=== PATIENT | male | born 1975 | race Caucasian/White ===

== ENCOUNTER → 2017-12-21 | Outpatient (REF) | payer OTHER ==
[2017-12-21 17:01] LABS: CHLAMYDIA DNA AMPLIFICATION NEGATIVE (NEGATIVE); GC DNA AMPLIFICATION NEGATIVE (NEGATIVE)
== END ==
LOC: M SFHCLERA 11:30
DX: R30.0 Dysuria (principal)

== ENCOUNTER 2019-06-16 10:04 | Inpatient (IN) | payer OTHER ==
[~2019-06-16] VITALS: Ht 172.7 cm; Wt 174.4 kg
[2019-06-16 12:15] VITALS: BP 118/59
[2019-06-16] MEDS ORDERED: ACETAMINOPHEN TAB 650MG DOSE (2X325MG) PO PRN (13:00)
[2019-06-16] MEDS ORDERED: BISACODYL 10 MG SUPP PR PRN (13:00)
[2019-06-16 14:00] VITALS: BP 134/80
[2019-06-16] MEDS ORDERED: HEPA1INJ SC (14:03)
[2019-06-16] MEDS ORDERED: IRBE300T12 PO (14:03)
[2019-06-16] MEDS ORDERED: MILKSUS3 PO (14:03)
[2019-06-16] MEDS ORDERED: COLA100C5 PO (14:03)
[2019-06-16] MEDS ORDERED: AMLO10TA5 PO (14:03)
[2019-06-16] MEDS ORDERED: BISA10SU4 PR (14:03)
[2019-06-16] MEDS ORDERED: SENN-85 PO (14:03)
[2019-06-16] MEDS ORDERED: CHLO120L TOP (14:03)
[2019-06-16] MEDS ORDERED: LOPR1TAB6 PO (14:03)
[2019-06-16] MEDS ORDERED: PANT40TA3 PO (14:03)
[2019-06-16] MEDS ORDERED: INSULANT SC (14:05)
[2019-06-16] MEDS ORDERED: HUMA100I5 SC (14:07)
[2019-06-16] MEDS ORDERED: AMLO5TAB6 PO (14:07)
[2019-06-16] MEDS ORDERED: DEXTROSE 50% 50 ML SYRINGE IV PRN (15:00)
[2019-06-16] MEDS ORDERED: LORazepam 2 MG/ML VIAL (J2060) IM PRN (15:00)
[2019-06-16] MEDS ORDERED: GLUCAGON FOR INJ 1 MG VIAL (J1610) SC PRN (15:00)
[2019-06-16] MEDS ORDERED: GLUCOSE 4 GM CHEW TABLET PO PRN (15:00)
--- NOTE | 2019-06-16 15:07 | REP ---
CT brain without contrast: History: Recent meningioma resection. Question areas of hemorrhage. No comparison imaging. Findings: Digital lateral painter shipyard view demonstrates frontal craniotomy defect. Axial CT images show metallic hardware fixing a frontal craniotomy which spans the midline. There is a mottled gas pattern at the anterior aspect of the right frontal lobe consistent with postoperative packing material. There are extensive areas of vasogenic edema in the frontal lobes bilaterally. These attenuate the frontal horns of the lateral ventricle somewhat. There are tiny curvilinear areas of hyperintensity in the right frontal lobe and inferiorly on the left extending into the temporal lobe. These may be areas of petechial hemorrhage. No intraventricular hemorrhage is appreciated. There is partial opacification of the right ethmoid air cells and right sphenoid sinus. Impression: Extensive areas of vasogenic edema in the frontal lobes bilaterally. Postoperative changes in the inferior frontal lobe on the right consistent with packing material. Curvilinear areas of increased attenuation in the right frontal lobe, left inferior frontal lobe, and left anterior temporal lobe consistent with petechial areas of postoperative hemorrhage. Electronically Signed by Jesus Grover MD 06/16/2019 07:23 P
[2019-06-16] MEDS: PANTOPRAZOLE 40MG TAB (PROTONIX) PO SCH (16:56)
[2019-06-16] MEDS: HumaLOG INSULIN (NovoLOG) PER UNIT SC SCH ×2 (18:07→21:00)
[2019-06-16 20:00] VITALS: BP 135/69
[2019-06-16] MEDS: DOCUSATE SODIUM 100 MG CAP PO SCH (21:00)
[2019-06-16] MEDS ORDERED: traZODone 25MG PER 1/2 TABLET PO PRN (21:00)
[2019-06-16] MEDS: SENNA 8.6 MG TAB (SENOKOT) PO SCH (21:00)
[2019-06-16] MEDS: HEPARIN SOD (PORCINE) 5000 UNITS/ML VIAL SC SCH (21:22)
[2019-06-16] MEDS: LEVEMIR (INSULIN DETEMIR) 1 UNITS/0.01ML SC SCH (21:23)
[2019-06-16] MEDS: **hydrALAZINE HCL** 25 MG TAB PO SCH (21:24)
--- NOTE | 2019-06-17 04:38 | CR.PDOC ---
General Date of Consultation: Jun 16, 2019 Consultation REASON FOR CONSULTATION/CHIEF COMPLAINT: s/p craniotomy HISTORY OF PRESENT ILLNESS: Pt is 43 y/o M with PMHx of HTN , T2DM and olfactory groove meningioma who underwent bifrontal craniotomy at [facility] on 06/09/19 and transferred to ARU on 06/16/19 for acute rehabilitation. Upon my encounter pt is awake and alert, pt is lying in bed comfortable with at bedside. Denies any headache, any visual disturbances, ant hearing problem or tinnitus. Pt denies any motor weakness or sensory loss. Pt denies any history of cardiac conditions or respiratory conditions. His T2DM is managed outpt on po metformin 500 BID and HTN on Norvasc 10mg daily. His VS and oxygenations are within normal limits. ALLERGIES: Please see below. HOME MEDICATIONS: Please see below. PAST MEDICAL HISTORY: 1. Meningioma s/p resection 2. HTN 3. T2DM 4. Morbid Obesity PAST SURGICAL HISTORY: 1. S/P bifrontal craniotomy tumor resection 06/09/19 FAMILY HISTORY: heart disease in mother denies any Hx of brain tumor in family SOCIAL HISTORY: lives with , denies ETOH, smoking or illicit drug use REVIEW OF SYSTEMS: 10 point negative except in HPI PHYSICAL EXAMINATION: VITAL SIGNS: Please see below. GENERAL APPEARANCE: Pt is awake and alert lying comfortable in bed no acute distress HEENT: EUNICE EOMI no icterus neck supple bifrontal sutures intact no cellulitis RESPIRATORY: good air entry no wheezing no rales CARDIOVASCULAR: distant due to body habitus S1 S2 ABDOMEN: soft obese NT ND EXTREMITIES: no cyanosis no tenderness NEUROLOGICAL: no motor weakness detected, CN grossly intact PSYCHIATRIC: mood affect appropriate LABORATORY DATA: Please see below. Vital Signs Date Time Temp Pulse Resp B/P (MAP) Pulse Ox O2 Delivery O2 Flow Rate FiO2 06/16/19 21:24 135/65 06/16/19 20:00 98.9 65 18 135/69 (91) 95 06/16/19 14:00 97.5 59 20 134/80 (98) 96 06/16/19 12:15 96.8 68 18 118/59 (78) 95 Intake & Output 06/17/19 06:00 Intake Total 560 ml Balance 560 ml Laboratory Tests 06/16/19 16:46: Bedside Glucose (Misc Panel) 166H 06/16/19 19:57: Bedside Glucose (Misc Panel) 161H Current Medications Medications (Trade) Dose Ordered Sig/Alex Route PRN Reason Start Time Stop Time Status Last Admin Dose Admin Dexamethasone (Decadron) 2 mg DAILY PO 06/16/19 15:30 06/16/19 16:57 2 MG Heparin Sodium (Porcine) (Heparin) 5,000 units Q12H SC 06/16/19 21:00 06/16/19 21:22 5,000 UNITS Insulin Detemir (Levemir Insulin) 50 units QHS SC 06/16/19 21:00 06/16/19 21:23 50 UNITS Insulin Human Lispro (HumaLOG INSULIN) SEE PROTOCOL TABLE AC SC 06/16/19 17:30 06/16/19 18:07 4 UNITS Pantoprazole Sodium (Protonix) 40 mg DAILY PO 06/16/19 09:00 06/16/19 16:56 40 MG A/P 1-Olfactory groove meningioma s/p bifrontal craniotomy and resection on 06/09/19 No neurologic deficit detected Sutures are healing no signs of infection Neurochecks as per unit protocol local wound care for site of craniotomy 2-Cerebral edema sec to invasive intervention Continue Decadron 4mg Q12hr for total 25 days since 06/09/19 as per neurosurgery recommendation in paper chart 3-Physical Rehabilitation as per primary team in ARU 4-HTN Norvasc 10mg daily Currently acceptable range 5-T2DM Metfromine 500mg BID 6-Morbid Obesity nutrition consultation Diet/exercise life style modification outpt management Thank you for consultation. Vital Signs/I&O Vital Signs Date Time Temp Pulse Resp B/P (MAP) Pulse Ox O2 Delivery O2 Flow Rate FiO2 06/16/19 21:24 135/65 06/16/19 20:00 98.9 65 18 95 I&O- Last 24 Hours up to 6 AM 06/17/19 06:00 Intake Total 560 ml Balance 560 ml Laboratory Data Labs 24H Laboratory Tests 2 06/16/19 16:46: Bedside Glucose (Misc Panel) 166H 06/16/19 19:57: Bedside Glucose (Misc Panel) 161H Allergies Coded Allergies: No Known Allergies (Unverified , 06/16/19) Home Medications Scheduled Amlodipine Besylate (Amlodipine Besylate) 5 Mg Tablet, 10 MG PO DAILY, (Reported) Chlorhexidin/Isopropyl Alcohol (Dynahex 2% Liquid) 120 Ml Liquid, 1 APLCT TOP DAILY, (Reported) TOPICAL WASH, APPLIES TO WHOLE BODY Docusate Sodium (Colace) 100 Mg Capsule, 100 MG PO BID, (Reported) Heparin Sod,Porcine/0.9 % NaCl (Heparin 1,000 Unit/1,000 ml-Ns) 1,000 Unit/1000 Ml Iv.soln, 5,000 UNITS SC TID, (Reported) Insulin Glargine (Lantus) 100 Unit/1 Ml Vial, 50 UNITS SC DAILY, (Reported) AT 1400 Insulin Lispro (Humalog Kwikpen U-100) 100 Unit/1 Ml Insuln.pen, 1 DOSE SC AC, (Reported) PER SLIDING SCALE Irbesartan/Hydrochlorothiazide (Irbesartan-Hctz 300-12.5 mg Tb) 1 Each Tablet, 1 TAB PO DAILY, (Reported) Metoprolol Tartrate (Lopressor) 50 Mg Tablet, 50 MG PO DAILY, (Reported) Pantoprazole Sodium (Pantoprazole Sodium) 40 Mg Tablet.dr, 40 MG PO DAILY, (Reported) Sennosides (Senna Laxative) 8.6 Mg Tablet, 17.2 MG PO QHS, (Reported) Scheduled PRN Bisacodyl (Bisacodyl) 10 Mg Supp.rect, 10 MG [place] DAILY PRN for CONSTIPATION, (Reported) Magnesium Hydroxide (Milk of Magnesia) 400 Mg/5 Ml Oral.susp, 30 ML PO DAILY PRN for CONSTIPATION, (Reported) AUBREY TRACY MD Jun 17, 2019 04:38
[2019-06-17 05:29] VITALS: BP 165/80
[2019-06-17] MEDS: **hydrALAZINE HCL** 25 MG TAB PO SCH ×3 (05:38→20:41)
[2019-06-17 07:29] LABS: HEMATOCRIT 35.1 % (42.0-52.0); HEMOGLOBIN 12.2 g/dl (13.5-17.5); MEAN CORPUSCULAR HEMOGLOBIN 31.9 pg (27.0-33.0); MEAN CORPUSCULAR HGB CONC 34.8 g/dl (32.0-36.5); MEAN CORPUSCULAR VOLUME 91.6 fl (80.0-96.0); PLATELET COUNT, AUTOMATED 179 10^3/uL (150-450); RED BLOOD COUNT 3.83 10^6/uL (4.30-6.10); WHITE BLOOD COUNT 14.6 10^3/uL (4.0-10.0)
[2019-06-17 07:52] LABS: BLOOD UREA NITROGEN 20 MG/DL (7-18); CALCIUM LEVEL 7.8 MG/DL (8.5-10.1); CARBON DIOXIDE LEVEL 31 MEQ/L (21-32); CHLORIDE LEVEL 107 MEQ/L (98-107); GLOMERULAR FILTRATION RATE > 60.0 (>60); GLUCOSE, FASTING 106 MG/DL (70-100); POTASSIUM SERUM 3.6 MEQ/L (3.5-5.1); SODIUM LEVEL 142 MEQ/L (136-145)
[2019-06-17] MEDS: PANTOPRAZOLE 40MG TAB (PROTONIX) PO SCH (08:43)
[2019-06-17] MEDS: HEPARIN SOD (PORCINE) 5000 UNITS/ML VIAL SC SCH ×2 (08:43→20:41)
[2019-06-17] MEDS: HumaLOG INSULIN (NovoLOG) PER UNIT SC SCH ×4 (08:44→20:18)
[2019-06-17] MEDS: DOCUSATE SODIUM 100 MG CAP PO SCH ×2 (08:44→20:40)
[2019-06-17] MEDS: METOPROLOL TART 50 MG TAB PO SCH (08:45)
[2019-06-17] MEDS: amLODIPine 10 MG TAB PO SCH (08:46)
[2019-06-17] MEDS ORDERED: IRBESARTAN 150 MG TAB PO SCH (09:00)
[2019-06-17] MEDS ORDERED: hydroCHLOROthiazide 12.5 MG CAPSULE PO SCH (09:00)
--- NOTE | 2019-06-17 11:09 | HPEPDOC ---
Agricultural Equipment Test Engineer Note DATE OF ADMISSION:06/16/19 SOURCE OF ADMISSION INFORMATION: patient and [facility] records CHIEF COMPLAINT:s/p olfactory meningioma resection HISTORY OF PRESENT ILLNESS: 43M pmh DM, morbid obesity, HTN admitted to [facility] for an olfactory groove meningioma resection performed on 06/09/19 after which he was placed on Decadron for cerebral edema in addition to hypertonic saline. He had episodes of agitation and delirium requiring Geodon and Ativan prn. Following the procedure patient developed left sided weakness, neglect, and apraxia. He was evaluated by therapy and found to have deficits in mobility and ADLs well below his prior level of function. He was deemed medically appropriate for discharge to ARU on 06/16/19. REVIEW OF SYSTEMS: The following is a completed review of systems and has been reviewed. Review of systems otherwise unremarkable. PAIN: Patient self reports no pain EYES: No recent vision changes EARS, NOSE, & THROAT: No throat pain, or dysphagia, or rhinorrhea CARDIOVASCULAR: Denies chest pain or palpitations PULMONARY: Denies shortness of breath GASTROINTESTINAL: Denies constipation/diarrhea GENITOURINARY: denies dysuria MUSCULOSKELETAL:left sided weakness NEUROLOGICAL: left sided neglect SKIN: coronal sutures and left eye ecchymosis PSYCHIATRIC: Unremarkable All other review of systems found to be negative. PAST MEDICAL HISTORY: as per HPI PAST SURGICAL HISTORY: meningoma resection ALLERGIES: Please see below. MEDICATIONS: Please see below. FAMILY HISTORY: cardiac SOCIAL HISTORY: , lives with children, no ETOH/smoking/illicit drugs, works in the [employer] DIET: consistent carb PHYSICAL EXAMINATION: VITAL SIGNS: Please see below. GENERAL: Pleasant and cooperative. No acute distress. morbidly obese HEENT: PERRL. Extraocular movements intact. Clear conjunctiva, left periorbital ecchymosis CARDIOVASCULAR: Regular rate and rhythm. No murmurs, rubs, or gallops LUNGS: Clear to auscultation bilaterally. No wheezes. No rhonchi ABDOMEN: Soft, nontender, nondistended. Positive bowel sounds. Normal active bowel sounds NEUROLOGICAL: Alert and oriented times three. Cranial nerves II through XII g rossly intact. Sensation grossly intact mild left sided neglect with apraxia EXTREMITIES: 5\5 strength right upper extremities, 2/5 left shoulder abduction, 3/5 elbow flexion and extension, 4/5 senior information systems architect. 5\5 strength right lower extremity. 5/5 strength in left lower extremity. SKIN: left periorbital ecchymosis, coronal craniotomy sutures c/d/i LABORATORY DATA: Please see below. IMAGING:Imaging documentation personally reviewed by record FUNCTIONAL STATUS: Premorbid: Independent with all activities of daily life as well as mobility. On Admission: Min assist for bed mobility and functional transfers, requiring assistance for ambulation and for dressing, and toileting GOALS:Independent without AD on uneven terrains, community distances, stairs, Mod-I for toileting, bathing, dressing, medical optimization, caregiver training ASSESSMENT:43-year-old M with past medical history of obesity, HTN, DM who presents status post olfactory meningioma resection. PLAN: 1. Rehab:: PT advance gait to uneven terrain, work on strengthening LE and d ynamic balance OT: improve left sided neglect and apraxia for improvement in ADLs, including fine motor skills 2. Neuro: s/p olfactory meningioma resection with residual LUE hemiparesis, was on Decadron 4mg x 1 week until day of discharge, will obtain baseline CTH for edema/hemorrhagic changes and add back Decadron to 2mg and taper -ativan IM prn seizures 3. cardio: pmh HTN- c/u irbesartan and hydrochlorothiazide, c/u beta-hill and amlodipine medicine consulted to help manage 4. Resp: encourage incentive spirometry 5. Endo: omh DM c/u insulin and ISS, adjust prn 6. : monitor PVRs 7. DVT ppx: heparin and TEDs 8. GI ppx: protonix 9. DIspo: TBD POST ADMISSION PHYSICIAN EVALUATION: Medical and functional status: Description of medical status, medical assessment: As above. Rehabilitation diagnosis and current and prior cold morbid medical conditions as above. Risk of complications and plans to mitigate them as above. Description of functional status current status is as above. Prior status as above. Status compared to preadmission: There are no clinically significant differences between the patient's current status and the information described on the preadmission screening document. Treatment plan anticipated: Treatment plan is as described above. Required disciplines including physical therapy, occupational therapy, others as noted above Intensity of services: 3 hours a day, 6 days a week. Special considerations: There are no specific special or safety considerations that would likely preclude immediate implementation of an intensive rehabilita tion program or subsequently influence the plan of care ATTESTATION: Considering all the information above, it is my best judgment that this patient requires intensive rehabilitation therapy as described above and an inpatient hospital environment due to the complexity of nursing, medical, and rehabilitation needs required by the patient. Furthermore, this patient can reasonably be expected to participate in an benefit from an inpatient rehabilitation stay with an interdisciplinary team approach to the delivery of rehabilitation care under the direction and supervision of rehabilitation physi alex PROGNOSIS: Excellent ESTIMATED LENGTH OF STAY:10-12 days. PROJECTED DISCHARGE DESTINATION: Home with family support and any durable medical equipment required to increase functional safety and mobility TIME SPENT COUNSELING AND COORDINATING INITIAL CARE: Greater than 70 minutes. Vital Signs Vital Sign - Last 24 Hours 06/16/19 06/16/19 06/16/19 06/16/19 12:15 14:00 20:00 21:24 Temp 96.8 97.5 98.9 Pulse 68 59 65 Resp 18 20 18 B/P (MAP) 118/59 (78) 134/80 (98) 135/69 (91) 135/65 Pulse Ox 95 96 95 06/17/19 06/17/19 06/17/19 06/17/19 05:29 05:38 08:45 08:46 Temp 98.3 Pulse 65 73 73 Resp 18 B/P (MAP) 165/80 (108) 165/80 165/80 165/80 Pulse Ox 96 06/17/19 08:46 B/P (MAP) 165/80 Laboratory Data CBC/BMP Laboratory Tests 06/17/19 07:01 Red Blood Count 3.83 L, Mean Corpuscular Volume 91.6, Mean Corpuscular Hemoglobin 31.9, Mean Corpuscular Hemoglobin Concent 34.8, Red Cell Distribution Width 13.6, Calcium Level 7.8 L Labs 24H Laboratory Tests 2 06/16/19 16:46: Bedside Glucose (Misc Panel) 166H 06/16/19 19:57: Bedside Glucose (Misc Panel) 161H 06/17/19 05:46: Bedside Glucose (Misc Panel) 112H 06/17/19 07:01: Nucleated Red Blood Cells % (auto) 0.0, Anion Gap 4L, Glomerular Filtration Rate > 60.0, Blood Urea Nitrogen 20H, Creatinine 0.70, Sodium Level 142, Potassium Level 3.6, Chloride Level 107, Carbon Dioxide Level 31, Calcium Level 7.8L FSBS Laboratory Tests Test 06/16/19 16:46 06/16/19 19:57 06/17/19 05:46 Range/Units Bedside Glucose ([facility] Panel) 166 161 112 70-105 MG/DL Home Medications Scheduled Amlodipine Besylate (Amlodipine Besylate) 5 Mg Tablet, 10 MG PO DAILY, (Reported) Chlorhexidin/Isopropyl Alcohol (Dynahex 2% Liquid) 120 Ml Liquid, 1 APLCT TOP DAILY, (Reported) TOPICAL WASH, APPLIES TO WHOLE BODY Docusate Sodium (Colace) 100 Mg Capsule, 100 MG PO BID, (Reported) Heparin Sod,Porcine/0.9 % NaCl (Heparin 1,000 Unit/1,000 ml-Ns) 1,000 Unit/1000 Ml Iv.soln, 5,000 UNITS SC TID, (Reported) Insulin Glargine (Lantus) 100 Unit/1 Ml Vial, 50 UNITS SC DAILY, (Reported) AT 1400 Insulin Lispro (Humalog Kwikpen U-100) 100 Unit/1 Ml Insuln.pen, 1 DOSE SC AC, (Reported) PER SLIDING SCALE Irbesartan/Hydrochlorothiazide (Irbesartan-Hctz 300-12.5 mg Tb) 1 Each Tablet, 1 TAB PO DAILY, (Reported) Metoprolol Tartrate (Lopressor) 50 Mg Tablet, 50 MG PO DAILY, (Reported) Pantoprazole Sodium (Pantoprazole Sodium) 40 Mg Tablet.dr, 40 MG PO DAILY, (Reported) Sennosides (Senna Laxative) 8.6 Mg Tablet, 17.2 MG PO QHS, (Reported) Scheduled PRN Bisacodyl (Bisacodyl) 10 Mg Supp.rect, 10 MG [place] DAILY PRN for CONSTIPATION, (Reported) Magnesium Hydroxide (Milk of Magnesia) 400 Mg/5 Ml Oral.susp, 30 ML PO DAILY PRN for CONSTIPATION, (Reported) Allergies Coded Allergies: No Known Allergies (Unverified , 06/16/19) A-FIB/CHADSVASC A-FIB History Current/History of A-Fib/PAF?: No KENYATTA NELSON MD Jun 17, 2019 11:09
[2019-06-17 14:30] VITALS: BP 134/62
--- NOTE | 2019-06-17 16:52 | NUR ---
Cognitive Linguistic eval completed. Deficits present in higher level cognitive function including safety awareness and preparation for limitations/restrictions in home environment. Pt was independent at baseline and completed high level tasks such as bill paying, grocery shopping, yard work, and reports working at a [employer]. Due to high level of function at baseline, recommend cognitive therapy to address high level functioning skills to promote max return to [facility]. Addendum: 06/17/19 at 1654 by ROCAEL LYNN SSV SP Amended: Links added.
[2019-06-17] MEDS: SENNA 8.6 MG TAB (SENOKOT) PO SCH (20:42)
[2019-06-17] MEDS: LEVEMIR (INSULIN DETEMIR) 1 UNITS/0.01ML SC SCH (20:42)
[2019-06-17 22:00] VITALS: BP 163/71
[2019-06-18] MEDS: **hydrALAZINE HCL** 25 MG TAB PO SCH ×3 (05:30→22:00)
[2019-06-18 05:34] VITALS: BP 179/90
[2019-06-18 06:15] VITALS: BP 166/82
[2019-06-18] MEDS: HumaLOG INSULIN (NovoLOG) PER UNIT SC SCH ×5 (07:30→20:35)
[2019-06-18] MEDS ORDERED: hydroCHLOROthiazide 12.5 MG CAPSULE PO SCH (09:00)
[2019-06-18] MEDS: METOPROLOL TART 50 MG TAB PO SCH (09:00)
[2019-06-18] MEDS: DOCUSATE SODIUM 100 MG CAP PO SCH ×2 (09:34→20:52)
[2019-06-18] MEDS: PANTOPRAZOLE 40MG TAB (PROTONIX) PO SCH (09:35)
[2019-06-18] MEDS: amLODIPine 10 MG TAB PO SCH (09:35)
[2019-06-18] MEDS: IRBESARTAN 150 MG TAB PO SCH (09:37)
[2019-06-18] MEDS: HEPARIN SOD (PORCINE) 5000 UNITS/ML VIAL SC SCH ×2 (09:42→20:51)
[2019-06-18] MEDS: hydroCHLOROthiazide 25 MG TAB PO SCH (09:44)
--- NOTE | 2019-06-18 10:18 | IPNPDOC ---
Subjective Date Seen The patient was seen on 06/18/19. Subjective Chief Complaint/HPI Patient seen and examined at the bedside. No acute overnight events noted. Patient denies any acute complaints at this time. Objective Physical Examination General Exam: Positive: Alert, Cooperative, No Acute Distress ENT Exam: Positive: Other ENT (the pulse along the left side of the head noted. Site clean, dry, and intact) Neck Exam: Negative: JVD Chest Exam: Positive: Clear to auscultation, Normal air movement Heart Exam: Positive: Rate Normal, Normal S1, Normal S2 Abdomen Exam: Positive: Soft; Negative: Tenderness Extremity Exam: Negative: Tenderness, Swelling Neuro Exam: Positive: Strength at 5/5 X4 ext, Normal Tone, Sensation Intact, Cranial Nerves 3-12 NL Psych Exam: Positive: Oriented x 3 Assessment /Plan Plan/VTE VTE Prophylaxis Ordered?: Yes Plan Olfactory groove meningioma s/p bifrontal craniotomy and resection on 06/09/19 No neurologic deficit detected Sutures are healing no signs of infection Neurochecks as per unit protocol local wound care for site of craniotomy Cerebral edema 2/2 Invasive intervention Continue Decadron 4mg Q12hr for total 25 days since 06/09/19 as per neurosurgery recommendation in paper chart HTN Norvasc 10mg daily, HCTZ, Irbesartan, Hydralazine T2DM Continue regimen as ordered Morbid Obesity Diet/exercise life style modification DVT Prophylaxis Heparin SC VS, I&O, 24H, Fishbone Vital Signs/I&O Vital Signs Date Time Temp Pulse Resp B/P (MAP) Pulse Ox O2 Delivery O2 Flow Rate FiO2 06/18/19 09:37 166/82 06/18/19 09:35 63 06/18/19 05:34 98.0 18 96 I&O- Last 24 Hours up to 6 AM 06/18/19 05:59 Intake Total 480 ml Output Total 0 ml Balance 480 ml Laboratory Data 24H LABS Laboratory Tests 2 06/17/19 11:42: Bedside Glucose (Misc Panel) 73 06/17/19 16:53: Bedside Glucose (Misc Panel) 144H 06/17/19 20:00: Bedside Glucose (Misc Panel) 159H 06/18/19 06:41: Bedside Glucose (Misc Panel) 68L BRYN COSTA MD Jun 18, 2019 10:18
[2019-06-18 14:00] VITALS: BP 160/69
[2019-06-18] MEDS: SENNA 8.6 MG TAB (SENOKOT) PO SCH (20:35)
[2019-06-18] MEDS: LEVEMIR (INSULIN DETEMIR) 1 UNITS/0.01ML SC SCH (20:52)
[2019-06-18 22:00] VITALS: BP 148/69
[2019-06-19 06:00] VITALS: BP 166/76
[2019-06-19] MEDS: **hydrALAZINE HCL** 25 MG TAB PO SCH ×3 (06:17→22:00)
[2019-06-19] MEDS: HumaLOG INSULIN (NovoLOG) PER UNIT SC SCH ×4 (07:16→20:08)
[2019-06-19] MEDS: DOCUSATE SODIUM 100 MG CAP PO SCH ×2 (08:44→21:00)
[2019-06-19] MEDS: HEPARIN SOD (PORCINE) 5000 UNITS/ML VIAL SC SCH ×2 (08:45→21:48)
[2019-06-19] MEDS: amLODIPine 10 MG TAB PO SCH (08:45)
[2019-06-19] MEDS: PANTOPRAZOLE 40MG TAB (PROTONIX) PO SCH (08:45)
[2019-06-19] MEDS: hydroCHLOROthiazide 25 MG TAB PO SCH (08:45)
[2019-06-19] MEDS: IRBESARTAN 150 MG TAB PO SCH (08:46)
[2019-06-19] MEDS: METOPROLOL TART 50 MG TAB PO SCH (08:46)
[2019-06-19 09:56] VITALS: BP 187/84
[2019-06-19 14:00] VITALS: BP 149/78
[2019-06-19 20:00] VITALS: BP 140/65
[2019-06-19] MEDS: SENNA 8.6 MG TAB (SENOKOT) PO SCH ×3 (21:00→21:52)
[2019-06-19] MEDS: LEVEMIR (INSULIN DETEMIR) 1 UNITS/0.01ML SC SCH (21:49)
[2019-06-20 06:00] VITALS: BP 139/80
[2019-06-20] MEDS: **hydrALAZINE HCL** 25 MG TAB PO SCH ×3 (06:00→21:33)
[2019-06-20] MEDS: HumaLOG INSULIN (NovoLOG) PER UNIT SC SCH ×4 (07:27→20:29)
[2019-06-20] MEDS: PANTOPRAZOLE 40MG TAB (PROTONIX) PO SCH (08:27)
[2019-06-20] MEDS: IRBESARTAN 150 MG TAB PO SCH (08:28)
[2019-06-20] MEDS: amLODIPine 10 MG TAB PO SCH (08:28)
[2019-06-20] MEDS: hydroCHLOROthiazide 25 MG TAB PO SCH (08:28)
[2019-06-20] MEDS: METOPROLOL TART 50 MG TAB PO SCH (08:29)
[2019-06-20] MEDS: DOCUSATE SODIUM 100 MG CAP PO SCH ×2 (08:29→20:36)
[2019-06-20] MEDS: HEPARIN SOD (PORCINE) 5000 UNITS/ML VIAL SC SCH ×2 (08:29→20:36)
[2019-06-20 14:00] VITALS: BP 134/68
[2019-06-20 20:00] VITALS: BP 138/63
[2019-06-20] MEDS: SENNA 8.6 MG TAB (SENOKOT) PO SCH (20:36)
[2019-06-20] MEDS: LEVEMIR (INSULIN DETEMIR) 1 UNITS/0.01ML SC SCH (20:36)
[2019-06-21] MEDS: **hydrALAZINE HCL** 25 MG TAB PO SCH ×3 (06:00→19:36)
[2019-06-21] MEDS: HumaLOG INSULIN (NovoLOG) PER UNIT SC SCH ×4 (06:29→19:49)
[2019-06-21 06:30] VITALS: BP 146/65
[2019-06-21] MEDS: DOCUSATE SODIUM 100 MG CAP PO SCH ×2 (09:00→19:35)
[2019-06-21] MEDS: METOPROLOL TART 50 MG TAB PO SCH (09:00)
[2019-06-21] MEDS: HEPARIN SOD (PORCINE) 5000 UNITS/ML VIAL SC SCH ×2 (10:02→19:54)
[2019-06-21] MEDS: IRBESARTAN 150 MG TAB PO SCH (10:02)
[2019-06-21] MEDS: amLODIPine 10 MG TAB PO SCH (10:03)
[2019-06-21] MEDS: PANTOPRAZOLE 40MG TAB (PROTONIX) PO SCH (10:04)
[2019-06-21] MEDS: hydroCHLOROthiazide 25 MG TAB PO SCH (10:04)
[2019-06-21 14:00] VITALS: BP 131/60
--- NOTE | 2019-06-21 17:36 | IPNPDOC ---
PM&R Progress Note DATE OF SERVICE: Jun 21, 2019 Mlt Progress Note Subjective: Patient reporting he feels well, admits he is impulsive pre-morbidly, but willing to work on slowing down in OT to improve sequencing. REVIEW OF SYSTEMS: The following is a completed review of systems and has been reviewed. Review of systems otherwise unremarkable. PAIN: Patient self reports no pain EYES: No recent vision changes EARS, NOSE, & THROAT: No throat pain, or dysphagia, or rhinorrhea CARDIOVASCULAR: Denies chest pain or palpitations PULMONARY: Denies shortness of breath GASTROINTESTINAL: Denies constipation/diarrhea GENITOURINARY: denies dysuria MUSCULOSKELETAL:left sided weakness NEUROLOGICAL: left sided neglect SKIN: coronal sutures and left eye ecchymosis PSYCHIATRIC: Unremarkable All other review of systems found to be negative. PHYSICAL EXAMINATION: VITAL SIGNS: Please see below. GENERAL: Pleasant and cooperative. No acute distress. morbidly obese HEENT: PERRL. Extraocular movements intact. Clear conjunctiva, left periorbital ecchymosis CARDIOVASCULAR: Regular rate and rhythm. No murmurs, rubs, or gallops LUNGS: Clear to auscultation bilaterally. No wheezes. No rhonchi ABDOMEN: Soft, nontender, nondistended. Positive bowel sounds. Normal active bowel sounds NEUROLOGICAL: Alert and oriented times three. Cranial nerves II through XII grossly intact. Sensation grossly intact mild left sided neglect with apraxia EXTREMITIES: 5\5 strength right upper extremities, 2/5 left shoulder abduction, 4/5 elbow flexion and extension, 4/5 tubing drier. 5\5 strength right lower extremity. 5/5 strength in left lower extremity. SKIN: left periorbital ecchymosis, coronal craniotomy sutures c/d/i ASSESSMENT:43-year-old M with past medical history of obesity, HTN, DM who presents status post olfactory meningioma resection. PLAN: 1. Rehab:: PT advance gait to uneven terrain, work on strengthening LE and dynamic balance- room privileges in place OT: improve left sided neglect and apraxia for improvement in ADLs, including fine motor skills 2. 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 cardio: pmh HTN- c/u irbesartan and hydrochlorothiazide, c/u beta-hill and amlodipine medicine consulted to help manage 4. Resp: encourage incentive spirometry 5. Endo: omh DM c/u insulin and ISS, adjust prn 6. : monitor PVRs 7. DVT ppx: heparin and TEDs 8. GI ppx: protonix 9. DIspo: 06/23/19 to home, progressing towards goals Allergies Coded Allergies: No Known Allergies (Unverified , 06/16/19) Vital Signs Vital Signs Date Time Temp Pulse Resp B/P (MAP) Pulse Ox O2 Delivery O2 Flow Rate FiO2 06/21/19 14:00 98.7 65 20 131/60 (83 94 Laboratory Data Labs 24H Laboratory Tests 2 06/20/19 19:54: Bedside Glucose (Misc Panel) 230H 06/21/19 06:22: Bedside Glucose (Misc Panel) 68L 06/21/19 12:00: Bedside Glucose (Misc Panel) 119H 06/21/19 15:43: Bedside Glucose (Misc Panel) 188H Current Medications Current Medications Current Medications Acetaminophen (Tylenol Tab) 650 mg Q4HP PRN PO fever/MILD PAIN (PS 1-4) Last administered on 06/19/19at 08:44; Start 06/16/19 at 13:00 Amlodipine Besylate (Norvasc) 10 mg DAILY PO Last administered on 06/21/19at 10:03; Start 06/17/19 at 09:00 Bisacodyl (Dulcolax Suppository) 10 mg DAILYPRN PRN SD CONSTIPATION; Start 06/16/19 at 13:00 Dexamethasone (Decadron) 2 mg DAILY PO Last administered on 06/21/19at 10:04; Start 06/16/19 at 15:30 Dextrose (Dextrose 50%) 25 ml ASDIRECTED PRN IV SEE LABEL COMMENTS; Start 06/16/19 at 15:00 Docusate Sodium (Colace) 100 mg BID PO Last administered on 06/19/19at 08:44; Start 06/16/19 at 21:00 Glucagon (Glucagon) 1 mg ASDIRECTED PRN SC SEE LABEL COMMENTS; Start 06/16/19 at 15:00 Glucose (Glucose) 16 GM ASDIRECTED PRN PO SEE LABEL COMMENTS; Start 06/16/19 at 15:00 Heparin Sodium (Porcine) (Heparin) 5,000 units Q12H SC Last administered on 06/21/19at 10:02; Start 06/16/19 at 21:00 Home Med (Med Rec Complete!) ASDIRECTED XX ; Start 06/16/19 at 14:15; Stop 06/16/19 at 14:38; Status DC Hydralazine HCl (Apresoline) 25 mg Q8H PO Last administered on 06/19/19at 06:17; Start 06/16/19 at 22:00 Hydrochlorothiazide (Hydrodiuril) 12.5 mg DAILY PO Last administered on 06/17/19at 08:45; Start 06/17/19 at 09:00; Stop 06/18/19 at 07:56; Status DC Hydrochlorothiazide (Hydrodiuril) 25 mg DAILY PO ; Start 06/18/19 at 09:00; Stop 06/18/19 at 09:33; Status DC Hydrochlorothiazide (Hydrodiuril) 25 mg DAILY PO Last administered on 06/21/19at 10:04; Start 06/18/19 at 09:00 Insulin Detemir (Levemir Insulin) 40 units QHS SC Last administered on 06/20/19at 20:36; Start 06/18/19 at 21:00 Insulin Detemir (Levemir Insulin) 50 units QHS SC Last administered on 06/17/19at 20:42; Start 06/16/19 at 21:00; Stop 06/18/19 at 07:56; Status DC Insulin Human Lispro (HumaLOG INSULIN) SEE PROTOCOL TABLE AC SC Last administered on 06/21/19at 17:19; Start 06/16/19 at 17:30 Insulin Human Lispro (HumaLOG INSULIN) SEE PROTOCOL TABLE QHS SC ; Start 06/16/19 at 21:00 Irbesartan (Avapro) 150 mg DAILY PO Last administered on 06/17/19at 08:46; Start 06/17/19 at 09:00; Stop 06/17/19 at 09:09; Status DC Irbesartan (Avapro) 300 mg DAILY PO Last administered on 06/21/19at 10:02; Start 06/18/19 at 09:00 Lorazepam (Ativan) 2 mg Q6HP PRN IM SEIZURES; Start 06/16/19 at 15:00 Metoprolol Tartrate (Lopressor) 50 mg DAILY PO Last administered on 06/17/19at 08:45; Start 06/17/19 at 09:00 Pantoprazole Sodium (Protonix) 40 mg DAILY PO Last administered on 06/21/19at 10:04; Start 06/16/19 at 09:00 Senna (Senokot) 1 tab QHS PO ; Start 06/16/19 at 21:00 Trazodone HCl (Desyrel) 25 mg QHSP PRN PO INSOMNIA; Start 06/16/19 at 21:00 KENYATTA NELSON MD Jun 21, 2019 17:36
[2019-06-21] MEDS: SENNA 8.6 MG TAB (SENOKOT) PO SCH (19:36)
[2019-06-21] MEDS: LEVEMIR (INSULIN DETEMIR) 1 UNITS/0.01ML SC SCH (19:54)
[2019-06-21 20:00] VITALS: BP 139/70
--- NOTE | 2019-06-21 20:44 | IPNPDOC ---
Subjective Date Seen The patient was seen on 06/21/19. at 6:56 PM Subjective Chief Complaint/HPI Reason for consult: Management of diabetes and hypertension Events since last encounter Patient denies having any headaches Objective Physical Examination General Exam: Positive: Alert, Cooperative, No Acute Distress ENT Exam: Positive: Other ENT (the pulse along the left side of the head noted. Site clean, dry, and intact) Neck Exam: Negative: JVD Chest Exam: Positive: Clear to auscultation, Normal air movement Heart Exam: Positive: Rate Normal, Normal S1, Normal S2 Abdomen Exam: Positive: Soft; Negative: Tenderness Extremity Exam: Negative: Tenderness, Swelling Neuro Exam: Positive: Strength at 5/5 X4 ext, Normal Tone, Sensation Intact, Cranial Nerves 3-12 NL Psych Exam: Positive: Oriented x 3 Assessment /Plan Assessment Mr. 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 We were consulted to comanage his medical conditions. #1. Hypertension. Appears well controlled. Plan: Continue his current course of care #2. Type II diabetes. Accu-Cheks reviewed. Plan: Continue with current course of care Rest of management per primary team Plan/VTE VTE Prophylaxis Ordered?: Yes VS, I&O, 24H, Fishbone Vital Signs/I&O Vital Signs Date Time Temp Pulse Resp B/P (MAP) Pulse Ox O2 Delivery O2 Flow Rate FiO2 06/21/19 19:36 139/70 06/21/19 14:00 98.7 65 20 94 I&O- Last 24 Hours up to 6 AM 06/21/19 06:00 Intake Total 1440 ml Balance 1440 ml Laboratory Data 24H LABS Laboratory Tests 2 06/21/19 06:22: Bedside Glucose (Misc Panel) 68L 06/21/19 12:00: Bedside Glucose (Misc Panel) 119H 06/21/19 15:43: Bedside Glucose (Misc Panel) 188H 06/21/19 19:35: Bedside Glucose (Misc Panel) 193H AMANDA NOBLES MD Jun 21, 2019 20:44
[2019-06-22 05:50] VITALS: BP 160/80
[2019-06-22] MEDS: **hydrALAZINE HCL** 25 MG TAB PO SCH ×3 (05:51→21:17)
[2019-06-22 06:45] LABS: BASO % 0.3 % (0.0-1.0); EOS # 0.1 10^3/uL (0.0-0.50); EOS % 1.3 % (0.0-3.0); HEMATOCRIT 36.5 % (42.0-52.0); HEMOGLOBIN 12.2 g/dl (13.5-17.5); LYMPH # 2.2 10^3/uL (1.5-4.5); LYMPH % 21.2 % (24.0-44.0); MEAN CORPUSCULAR HGB CONC 33.4 g/dl (32.0-36.5); MEAN CORPUSCULAR VOLUME 92.9 fl (80.0-96.0); MONO # 0.9 10^3/uL (0.0-0.8); MONO % 8.9 % (0.0-5.0); NEUTROPHILS # 6.9 10^3/uL (1.8-7.7); NEUTROPHILS % 66.2 % (36.0-66.0); PLATELET COUNT, AUTOMATED 238 10^3/uL (150-450); RED BLOOD COUNT 3.93 10^6/uL (4.30-6.10); WHITE BLOOD COUNT 10.5 10^3/uL (4.0-10.0)
[2019-06-22 07:07] LABS: BLOOD UREA NITROGEN 22 MG/DL (7-18); CALCIUM LEVEL 8.7 MG/DL (8.5-10.1); CARBON DIOXIDE LEVEL 33 MEQ/L (21-32); CHLORIDE LEVEL 104 MEQ/L (98-107); CREATININE FOR GFR 0.89 MG/DL (0.70-1.30); GLOMERULAR FILTRATION RATE > 60.0 (>60); GLUCOSE, FASTING 88 MG/DL (70-100); POTASSIUM SERUM 3.9 MEQ/L (3.5-5.1); SODIUM LEVEL 140 MEQ/L (136-145)
[2019-06-22] MEDS: HumaLOG INSULIN (NovoLOG) PER UNIT SC SCH ×4 (07:30→20:24)
[2019-06-22] MEDS: DOCUSATE SODIUM 100 MG CAP PO SCH ×2 (07:46→20:30)
[2019-06-22] MEDS: METOPROLOL TART 50 MG TAB PO SCH (07:46)
[2019-06-22] MEDS: amLODIPine 10 MG TAB PO SCH (08:41)
[2019-06-22] MEDS: PANTOPRAZOLE 40MG TAB (PROTONIX) PO SCH (08:41)
[2019-06-22] MEDS: hydroCHLOROthiazide 25 MG TAB PO SCH (08:41)
[2019-06-22] MEDS: HEPARIN SOD (PORCINE) 5000 UNITS/ML VIAL SC SCH (08:41)
[2019-06-22] MEDS: IRBESARTAN 150 MG TAB PO SCH (08:42)
--- NOTE | 2019-06-22 10:08 | IPNPDOC ---
PM&R Progress Note DATE OF SERVICE: Jun 22, 2019 Bottom Cager Progress Note Subjective: Patient seen in bed stating he feels well and ready to go home tomorrow. REVIEW OF SYSTEMS: The following is a completed review of systems and has been reviewed. Review of systems otherwise unremarkable. PAIN: Patient self reports no pain EYES: No recent vision changes EARS, NOSE, & THROAT: No throat pain, or dysphagia, or rhinorrhea CARDIOVASCULAR: Denies chest pain or palpitations PULMONARY: Denies shortness of breath GASTROINTESTINAL: Denies constipation/diarrhea GENITOURINARY: denies dysuria MUSCULOSKELETAL:left sided weakness NEUROLOGICAL: left sided neglect SKIN: coronal sutures and left eye ecchymosis PSYCHIATRIC: Unremarkable All other review of systems found to be negative. PHYSICAL EXAMINATION: VITAL SIGNS: Please see below. GENERAL: Pleasant and cooperative. No acute distress. morbidly obese HEENT: PERRL. Extraocular movements intact. Clear conjunctiva, left periorbital ecchymosis CARDIOVASCULAR: Regular rate and rhythm. No murmurs, rubs, or gallops LUNGS: Clear to auscultation bilaterally. No wheezes. No rhonchi ABDOMEN: Soft, nontender, nondistended. Positive bowel sounds. Normal active bowel sounds NEUROLOGICAL: Alert and oriented times three. Cranial nerves II through XII grossly intact. Sensation grossly intact mild left sided neglect with apraxia EXTREMITIES: 5\5 strength right upper extremities, 3/5 left shoulder abduction, 4/5 elbow flexion and extension, 4/5 bridge leverman. 5\5 strength right lower extremity. 5/5 strength in left lower extremity. SKIN: left periorbital ecchymosis, coronal craniotomy sutures c/d/i ASSESSMENT:43-year-old M with past medical history of obesity, HTN, DM who presents status post olfactory meningioma resection. PLAN: 1. Rehab:: PT advance gait to uneven terrain, work on strengthening LE and dynamic balance- room privileges in place OT: improve left sided neglect and apraxia for improvement in ADLs, including fine motor skills 2. 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 cardio: pmh HTN- c/u irbesartan and amlodipine, -increased HCTZ and loosened HR parameters for beta-hill -medicine consulted to help manage 4. Resp: encourage incentive spirometry 5. Endo: pmh DM c/u insulin and ISS, adjust prn, dietary consult ordered to counseling aide on weight loss 6. : monitor PVRs 7. DVT ppx: heparin and TEDs 8. GI ppx: protonix 9. DIspo: 06/23/19 to home, progressing towards goals Allergies Coded Allergies: No Known Allergies (Unverified , 06/16/19) Vital Signs Vital Signs Date Time Temp Pulse Resp B/P (MAP) Pulse Ox O2 Delivery O2 Flow Rate FiO2 06/22/19 08:42 160/80 06/22/19 08:41 65 06/22/19 05:50 97.1 18 98 Laboratory Data CBC/BMP Laboratory Tests 06/22/19 06:17 Red Blood Count 3.93 L, Mean Corpuscular Volume 92.9, Mean Corpuscular Hemoglobin 31.0, Mean Corpuscular Hemoglobin Concent 33.4, Red Cell Distribution Width 13.6, Neutrophils (%) (Auto) 66.2 H, Lymphocytes (%) (Auto) 21.2 L, Monocytes (%) (Auto) 8.9 H, Eosinophils (%) (Auto) 1.3, Basophils (%) (Auto) 0.3, Neutrophils # (Auto) 6.9, Lymphocytes # (Auto) 2.2, Monocytes # (Auto) 0.9 H, Eosinophils # (Auto) 0.1, Basophils # (Auto) 0.0, Calcium Level 8.7 Labs 24H Laboratory Tests 2 06/21/19 12:00: Bedside Glucose (Misc Panel) 119H 06/21/19 15:43: Bedside Glucose (Misc Panel) 188H 06/21/19 19:35: Bedside Glucose (Misc Panel) 193H 06/22/19 05:42: Bedside Glucose (Misc Panel) 90 06/22/19 06:17: Immature Granulocyte % (Auto) 2.1, White Blood Count 10.5H, Red Blood Count 3.93L, Hemoglobin 12.2L, Hematocrit 36.5L, Mean Corpuscular Volume 92.9, Mean Corpuscular Hemoglobin 31.0, Mean Corpuscular Hemoglobin Concent 33.4, Red Cell Distribution Width 13.6, Platelet Count 238, Neutrophils (%) (Auto) 66.2H, Lymphocytes (%) (Auto) 21.2L, Monocytes (%) (Auto) 8.9H, Eosinophils (%) (Auto) 1.3, Basophils (%) (Auto) 0.3, Neutrophils # (Auto) 6.9, Lymphocytes # (Auto) 2.2, Monocytes # (Auto) 0.9H, Eosinophils # (Auto) 0.1, Basophils # (Auto) 0.0, Nucleated Red Blood Cells % (auto) 0.0, Anion Gap 3L, Glomerular Filtration Rate > 60.0, Blood Urea Nitrogen 22H, Creatinine 0.89, Sodium Level 140, Potassium Level 3.9, Chloride Level 104, Carbon Dioxide Level 33H, Calcium Level 8.7 Current Medications Current Medications Current Medications Acetaminophen (Tylenol Tab) 650 mg Q4HP PRN PO fever/MILD PAIN (PS 1-4) Last administered on 06/19/19 08:44; Start 06/16/19 at 13:00 Amlodipine Besylate (Norvasc) 10 mg DAILY PO Last administered on 06/22/19 08:41; Start 06/17/19 at 09:00 Bisacodyl (Dulcolax Suppository) 10 mg DAILYPRN PRN [place] CONSTIPATION; Start 06/16/19 at 13:00 Dexamethasone (Decadron) 2 mg DAILY PO Last administered on 06/22/19 08:41; Start 06/16/19 at 15:30 Dextrose (Dextrose 50%) 25 ml ASDIRECTED PRN IV SEE LABEL COMMENTS; Start 06/16/19 at 15:00 Docusate Sodium (Colace) 100 mg BID PO Last administered on 06/19/19at 08:44; Start 06/16/19 at 21:00 Glucagon (Glucagon) 1 mg ASDIRECTED PRN SC SEE LABEL COMMENTS; Start 06/16/19 at 15:00 Glucose (Glucose) 16 GM ASDIRECTED PRN PO SEE LABEL COMMENTS; Start 06/16/19 at 15:00 Heparin Sodium (Porcine) (Heparin) 5,000 units Q12H SC Last administered on 06/22/19at 08:41; Start 06/16/19 at 21:00 Home Med (Med Rec Complete!) ASDIRECTED XX ; Start 06/16/19 at 14:15; Stop 06/16/19 at 14:38; Status DC Hydralazine HCl (Apresoline) 25 mg Q8H PO Last administered on 06/22/19at 05:51; Start 06/16/19 at 22:00 Hydrochlorothiazide (Hydrodiuril) 12.5 mg DAILY PO Last administered on 06/17/19at 08:45; Start 06/17/19 at 09:00; Stop 06/18/19 at 07:56; Status DC Hydrochlorothiazide (Hydrodiuril) 25 mg DAILY PO ; Start 06/18/19 at 09:00; Stop 06/18/19 at 09:33; Status DC Hydrochlorothiazide (Hydrodiuril) 25 mg DAILY PO Last administered on 06/22/19at 08:41; Start 06/18/19 at 09:00 Insulin Detemir (Levemir Insulin) 40 units QHS SC Last administered on 06/21/19at 19:54; Start 06/18/19 at 21:00 Insulin Detemir (Levemir Insulin) 50 units QHS SC Last administered on 06/17/19at 20:42; Start 06/16/19 at 21:00; Stop 06/18/19 at 07:56; Status DC Insulin Human Lispro (HumaLOG INSULIN) SEE PROTOCOL TABLE AC SC Last administered on 06/21/19at 17:19; Start 06/16/19 at 17:30 Insulin Human Lispro (HumaLOG INSULIN) SEE PROTOCOL TABLE QHS SC ; Start 06/16/19 at 21:00 Irbesartan (Avapro) 150 mg DAILY PO Last administered on 06/17/19at 08:46; Start 06/17/19 at 09:00; Stop 06/17/19 at 09:09; Status DC Irbesartan (Avapro) 300 mg DAILY PO Last administered on 06/22/19 08:42; Start 06/18/19 at 09:00 Lorazepam (Ativan) 2 mg Q6HP PRN IM SEIZURES; Start 06/16/19 at 15:00; Stop 06/21/19 at 17:33; Status DC Metoprolol Tartrate (Lopressor) 50 mg DAILY PO Last administered on 06/17/19at 08:45; Start 06/17/19 at 09:00 Pantoprazole Sodium (Protonix) 40 mg DAILY PO Last administered on 06/22/19at 08:41; Start 06/16/19 at 09:00 Senna (Senokot) 1 tab QHS PO ; Start 06/16/19 at 21:00 Trazodone HCl (Desyrel) 25 mg QHSP PRN PO INSOMNIA; Start 06/16/19 at 21:00 KENYATTA NELSON MD Jun 22, 2019 10:08
[2019-06-22 14:00] VITALS: BP 132/56
--- NOTE | 2019-06-22 14:49 | IPN ---
DATE: 06/20/2019 Prabhakar Grullon is a 43-year-old male on the acute rehabilitation unit who was admitted for olfactory groove meningoma resection on 06/09/2019. He continues to progress well. There have been no acute events noted. He denies any complaints today. PHYSICAL EXAMINATION: Blood pressure 139/80, pulse 67, respirations 18, temperature 97, Oxygen sat 96% on room air. The patient is alert and oriented times three. Pupils are equal and reactive to light. EOM's are intact. Conjunctiva is normal. OR site clean and dry. Neck is supple without lymphadenopathy, thyroid no goiter. Carotids 2+ without bruit. Chest clear to auscultation. No wheezes or retraction. Heart is regular. Abdomen is benign. Bowel sounds are positive. and rectal not done. Extremities no cyanosis, clubbing or edema. Peripheral pulses are palpable bilaterally. IMPRESSION/PLAN: Olfactory groove meningoma resection. No neurologic deficit. Incision has no signs of infection. Continue Decadron 4 mg every 12 for 12-25 days started 06/09/2019 as per neurosurgery recommendation. Hypertension, stable. Continue Norvasc HCTZ, hydralazine. Diabetes type 2. Continue regimen as ordered. Morbid obesity. Diet and exercise. DVT prophylaxis, subcu heparin. Patient is clinically stable. No acute medical issues.
--- NOTE | 2019-06-22 15:46 | IPNPDOC ---
Text Note Date of Service The patient was seen on 06/22/19. NOTE Time of service 1:35 PM Patient was away at physical therapy. We'll follow-up tomorrow VSJosue, I+O VSJosue I+O Laboratory Tests 06/22/19 06:17 Red Blood Count 3.93 L, Mean Corpuscular Volume 92.9, Mean Corpuscular Hemoglobin 31.0, Mean Corpuscular Hemoglobin Concent 33.4, Red Cell Distribution Width 13.6, Neutrophils (%) (Auto) 66.2 H, Lymphocytes (%) (Auto) 21.2 L, Monocytes (%) (Auto) 8.9 H, Eosinophils (%) (Auto) 1.3, Basophils (%) (Auto) 0.3, Neutrophils # (Auto) 6.9, Lymphocytes # (Auto) 2.2, Monocytes # (Auto) 0.9 H, Eosinophils # (Auto) 0.1, Basophils # (Auto) 0.0, Calcium Level 8.7 Vital Signs Date Time Temp Pulse Resp B/P (MAP) Pulse Ox O2 Delivery O2 Flow Rate FiO2 06/22/19 14:00 83 21 132/56 (81) 97 06/22/19 05:50 97.1 I&O- Last 24 Hours up to 6 AM 06/22/19 06:00 Intake Total 415 ml Output Total 0 ml Balance 415 ml AMANDA NOBLES MD Jun 22, 2019 15:46
[2019-06-22] MEDS: METOPROLOL TART 25 MG TABLET PO SCH (20:29)
[2019-06-22] MEDS: LEVEMIR (INSULIN DETEMIR) 1 UNITS/0.01ML SC SCH (20:29)
[2019-06-22] MEDS: SENNA 8.6 MG TAB (SENOKOT) PO SCH (20:30)
[2019-06-22 20:53] VITALS: BP 112/56
[2019-06-23] MEDS: **hydrALAZINE HCL** 25 MG TAB PO SCH (05:48)
[2019-06-23 06:00] VITALS: BP 126/67
[2019-06-23] MEDS: HumaLOG INSULIN (NovoLOG) PER UNIT SC SCH (07:30)
[2019-06-23] MEDS: PANTOPRAZOLE 40MG TAB (PROTONIX) PO SCH (08:32)
[2019-06-23] MEDS: amLODIPine 10 MG TAB PO SCH (08:32)
[2019-06-23 08:33] VITALS: BP 126/67
[2019-06-23] MEDS: IRBESARTAN 150 MG TAB PO SCH (08:33)
[2019-06-23] MEDS: METOPROLOL TART 25 MG TABLET PO SCH (08:33)
[2019-06-23] MEDS: DOCUSATE SODIUM 100 MG CAP PO SCH (08:33)
[2019-06-23] MEDS ORDERED: hydroCHLOROthiazide 25 MG TAB PO SCH (09:00)
[2019-06-23] MEDS ORDERED: AVAP150T31 PO (10:22)
[2019-06-23] MEDS ORDERED: METO1TAB87 PO (10:22)
[2019-06-23] MEDS ORDERED: INSUDET SC (10:22)
[2019-06-23] MEDS ORDERED: AMLO10TA5 PO (10:22)
[2019-06-23] MEDS ORDERED: PANT40TA3 PO (10:22)
[2019-06-23] MEDS ORDERED: DEXA1TA PO (10:22)
[2019-06-23] MEDS ORDERED: HYDR25TA PO (10:22)
[2019-06-23] MEDS ORDERED: HYDR25TAB PO (10:22)
[2019-06-23] MEDS ORDERED: METO1TAB32 PO ×2 (10:26→10:28)
[2019-06-23] MEDS ORDERED: METF500T4 PO (11:32)
== END 2019-06-23 12:00 | disposition home or self-care (01) | DRG 91 ==
LOC: M PM&R 12:10
PROVIDERS: ADMIT Physical Medicine & Rehabilitation; ATTEND Physical Medicine & Rehabilitation
DX: R26.89 Other abnormalities of gait and mobility (principal); G93.6 Cerebral edema; G81.92 Hemiplegia, unspecified affecting left dominant side; Z68.43 Body mass index [BMI] 50.0-59.9, adult; E11.9 Type 2 diabetes mellitus without complications; E66.01 Morbid (severe) obesity due to excess calories; I10 Essential (primary) hypertension; Z79.4 Long term (current) use of insulin; Z79.899 Other long term (current) drug therapy